=== PATIENT | male | born 1995 | race Caucasian/White ===

== ENCOUNTER 2020-12-23 05:26 | Emergency (ER) | payer BC ==
[2020-12-23] MEDS ORDERED: Ondansetron 4 MG/2 ML SDV IVPUSH ONE (05:55)
[2020-12-23] MEDS ORDERED: HYDROmorphone 0.5 MG/0.5 ML Syringe IVPUSH ONE (05:55)
[2020-12-23] MEDS ORDERED: Sodium Chloride 0.9% 1,000 ML IV SCH (06:00)
--- NOTE | 2020-12-23 06:00 | EDM.PDOC ---
ED HPI GENERAL MEDICAL PROBLEM - General Chief Complaint: Genitourinary Problem Stated Complaint: POSS KIDNEY STONES Time Seen by Provider: 12/23/20 05:39 Source of Information: Reports: Patient History Limitations: Reports: No Limitations - History of Present Illness INITIAL COMMENTS - FREE TEXT/NARRATIVE: Mr. Oconnor is a very pleasant 25-year-old gentleman who now presents the ED stating that he developed right sided abdominal pain and nausea around 01 30 this morning. No urinary symptoms, and no back or flank pain. No recent fever. He states that his current symptoms are similar to when he had a kidney stone in 2015; he did not have back or flank pain at that time, either. The patient did not take any [id number] or home remedies since the onset of his symptoms. Here in the ED, the patient's initial BP was mildly elevated at 143/85, otherwise, he is hemodynamically stable, afebrile, saturating 98% on room air. He appears to be comfortable, in no acute distress. Prior to this morning, the patient denies having a recent fever, chills, sore throat, ear pain, nasal or sinus congestion, cough, dyspnea, chest pain, palpitations, nausea, vomiting, constipation, diarrhea, abdominal pain, urinary symptoms, recent weight gain or weight loss, recent bloody bowel movements or black bowel movements, recent joint aches, headaches, or rashes. I reviewed the PMHx/PSHx/SocHx, which was reviewed with the patient by the RN. The patient does not have a PCP. He has not received a COVID vaccination, nor an influenza vaccination this season. Right Abdomen Pain Score (Numeric/FACES): 9 - Related Data Allergies Allergy/AdvReac Type Severity Reaction Status Date / Time Penicillins Allergy Other Verified 12/23/20 05:45 Past Medical History Genitourinary History: Reports: Renal Calculus Social & Family History - Tobacco Use Tobacco Use Status *Q: Never Tobacco User - Recreational Drug Use Recreational Drug Use: No ED ROS GENERAL - Review of Systems Review Of Systems: Comprehensive ROS is negative, except as noted in HPI. ED EXAM, GENERAL - Physical Exam Exam: See Below Exam Limited By: No Limitations General Appearance: Alert, WD/WN, No Apparent Distress Eye Exam: Bilateral Eye: EOMI, Normal Inspection Ears: Normal External Exam, Hearing Grossly Normal Nose: Normal Inspection Throat/Mouth: Normal Inspection, Normal Lips, Normal Voice, No Airway Compromise Head: Atraumatic, Normocephalic Neck: Normal Inspection, Full Range of Motion Respiratory/Chest: No Respiratory Distress, Lungs Clear, Normal Breath Sounds, No Accessory Muscle Use Cardiovascular: Normal Peripheral Pulses, Regular Rate, Rhythm, No Edema, No Gallop, No JVD, No Murmur, No Rub Peripheral Pulses: 3+: Radial (L), Radial (R) GI/Abdominal: Normal Bowel Sounds, Soft, No Organomegaly, No Distention, No Abnormal Bruit, No Mass, Tender (To the right side of the abdomen only. Nontender on the left side.) Back Exam: Normal Inspection, Full Range of Motion. No: CVA Tenderness (L), CVA Tenderness (R) Extremities: Normal Inspection, Normal Range of Motion, No Pedal Edema, Normal Capillary Refill Neurological: Alert, Oriented, Normal Cognition, No Motor/Sensory Deficits Psychiatric: Normal Affect Skin Exam: Warm, Dry, Intact, Normal Color, No Rash Course - Vital Signs Last Recorded V/S: Last Vital Signs Temp 36.6 C 12/23/20 05:39 Pulse 75 12/23/20 05:39 Resp 20 12/23/20 05:39 BP 143/85 H 12/23/20 05:39 Pulse Ox 98 12/23/20 05:39 - Orders/Labs/Meds Orders: Active Orders 24 hr Category Date Time Status Sodium Chloride 0.9% [Normal Saline] 1,000 ml Med 12/23/20 06:00 Active IV ASDIRECTED Sodium Chloride 0.9% [Saline Flush] Med 12/23/20 07:10 Active 10 ml FLUSH ONETIME PRN Medication Orders Sodium Chloride (Normal Saline) 1,000 mls @ 150 mls/hr IV ASDIRECTED TORI Last Admin: 12/23/20 06:38 Dose: 150 mls/hr Documented by: ROSE Sodium Chloride (Sodium Chloride 0.9% 10 Ml Syringe) 10 ml FLUSH ONETIME PRN PRN Reason: Keep Vein Open Labs: Laboratory Tests 12/23/20 12/23/20 12/23/20 Range/Units 06:05 06:05 06:15 WBC 13.88 H (4.23-9.07) K/mm3 RBC 4.86 (4.63-6.08) M/mm3 Hgb 15.1 (13.7-17.5) gm/dl Hct 42.2 (40.1-51.0) % MCV 86.8 (79.0-92.2) fl MCH 31.1 (25.7-32.2) pg MCHC 35.8 H (32.2-35.5) g/dl RDW Std Deviation 39.4 (35.1-43.9) fL Plt Count 220 (163-337) K/mm3 MPV 9.1 L (9.4-12.3) fl Neutrophils % (Manual) 91 H (40-60) % Band Neutrophils % 1 (0-10) % Lymphocytes % (Manual) 5 L (20-40) % Atypical Lymphs % 0 % Monocytes % (Manual) 3 (2-10) % Eosinophils % (Manual) 0 L (0.8-7.0) % Basophils % (Manual) 0 L (0.2-1.2) Platelet Estimate Adequate RBC Morph Comment Normal Sodium 141 (136-145) mEq/L Potassium 3.7 (3.5-5.1) mEq/L Chloride 105 (98-107) mEq/L Carbon Dioxide 25 (21-32) mEq/L Anion Gap 14.7 (5-15) BUN 16 (7-18) mg/dL Creatinine 0.9 (0.7-1.3) mg/dL Est Cr Clr Drug Dosing 120.33 mL/min Estimated GFR (MDRD) > 60 (>60) mL/min BUN/Creatinine Ratio 17.8 (14-18) Glucose 138 H (70-99) mg/dL Calcium 9.0 (8.5-10.1) mg/dL Total Bilirubin 1.7 H (0.2-1.0) mg/dL AST 19 (15-37) U/L ALT 31 (16-63) U/L Alkaline Phosphatase 74 (46-116) U/L Total Protein 6.5 (6.4-8.2) g/dl Albumin 4.1 (3.4-5.0) g/dl Globulin 2.4 gm/dL Albumin/Globulin Ratio 1.7 (1-2) Lipase 74 (73-393) U/L Urine Color Yellow (Yellow) Urine Appearance Clear (Clear) Urine pH 6.0 (5.0-8.0) Ur Specific [place] > or = 1.030 (1.005-1.030) Urine Protein Negative (Negative) Urine Glucose (UA) Negative (Negative) Urine Ketones Negative (Negative) Urine Occult Blood Negative (Negative) Urine Nitrite Negative (Negative) Urine Bilirubin Negative (Negative) Urine Urobilinogen 0.2 (0.2-1.0) Ur Leukocyte Esterase Negative (Negative) Urine RBC Not seen (0-5) /hpf Urine WBC Not seen (0-5) /hpf Ur Squamous Epith Cells 0-5 (0-5) /hpf Urine Bacteria Few (FEW) /hpf Urine Mucus Many H (FEW) /hpf Meds: Medications Generic Name Dose Route Start Last Admin Trade Name Freq PRN Reason Stop Dose Admin Sodium Chloride 1,000 mls @ 150 mls/hr 12/23/20 06:00 12/23/20 06:38 Normal Saline IV 150 mls/hr ASDIRECTED TORI Administration Sodium Chloride 10 ml 12/23/20 07:10 Sodium Chloride 0.9% 10 Ml Syringe FLUSH ONETIME PRN Keep Vein Open Discontinued Medications Generic Name Dose Route Start Last Admin Trade Name Freq PRN Reason Stop Dose Admin Diatrizoate Meglum/Diatrizoate Sod 60 ml 12/23/20 07:09 Diatrizoate Meglumine/Diatrizoate Sodium 37% 120 Ml Bottle PO 12/23/20 07:10 ONETIME ONE Hydromorphone HCl 0.5 mg 12/23/20 05:55 12/23/20 06:36 Hydromorphone 0.5 Mg/0.5 Ml Syringe IVPUSH 12/23/20 05:56 0.5 mg ONETIME ONE Administration Iopamidol 100 ml 12/23/20 07:09 Iopamidol 612 Mg/Ml 100 Ml Bottle IVPUSH 12/23/20 07:10 ONETIME ONE Iopamidol 25 ml 12/23/20 07:10 Iopamidol 612 Mg/Ml 50 Ml Sdv IVPUSH 12/23/20 07:11 ONETIME ONE Ondansetron HCl 4 mg 12/23/20 05:55 12/23/20 06:36 Ondansetron 4 Mg/2 Ml Sdv IVPUSH 12/23/20 05:56 4 mg ONETIME ONE Administration - Re-Assessments/Exams Free Text/Narrative Re-Assessment/Exam: 12/23/20 05:56 The patient is complaining of right-sided abdominal pain, and he has tenderness to the right side of his abdomen, as well. No significant tenderness to the left side of his abdomen, and no CVA tenderness on either side. I have ordered a work-up that includes several blood tests, a urinalysis by clean-catch, and a CT of the abdomen and pelvis with oral and IV contrast. In the meantime, the patient will be treated with IV Dilaudid, IV Zofran, and IV fluid. 12/23/20 07:33 The patient's CBC is remarkable for leukocytosis of 13.88, but with only 1% bandemia, and the remainder of his CBC being unremarkable. His CMP is remarkable for modest hyperglycemia of 138, and a TBil elevated at 1.7, with remainder of his CBC being unremarkable. His lipase level is within normal limits at 74. His urinalysis is unremarkable. Results of his CT of the abdomen and pelvis are still pending. 12/23/20 08:17 CT of the abdomen and pelvis with oral and IV contrast is read by Dr. Bonner as: 1. Mild increased stool throughout the colon. 2. Nonvisualized appendix. 3. 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 4. No acute abnormality is appreciated on CT study of the abdomen and pelvis. 12/23/20 08:30 Test results discussed with the patient. As above, today's work-up is grossly unremarkable. The only possible explanation for his pain is constipation. I advised him to maybe drink some prune juice to see if he can clear himself out. Departure - Departure Time of Disposition: 08:30 Disposition: Home, Self-Care 01 Condition: Good Clinical Impression: Abdominal pain of unknown etiology - Discharge Information *PRESCRIPTION DRUG MONITORING PROGRAM REVIEWED*: Not Applicable *COPY OF PRESCRIPTION DRUG MONITORING REPORT IN PATIENT VEDA: Not Applicable Referrals: PCP,None [Primary Care Provider] - Forms: ED Department Discharge Additional Instructions: You were seen in the emergency room after developing right-sided abdominal pain and nausea earlier this morning. Work-up in the ER included several blood tests, urinalysis, and a CT of your abdomen and pelvis with oral and IV contrast. The CT scan found an excessive amount of stool, otherwise, your entire work-up was unremarkable. You do not have a kidney stone. You do not have appendicitis. We recommend that you try to clear yourself out with some prune juice or similar. If any other problems, please do not hesitate to return to the ER. Sepsis Event Note (ED) - Focused Exam Vital Signs: Vital Signs Temp Pulse Resp BP Pulse Ox 12/23/20 05:39 36.6 C 75 20 143/85 H 98 - My Orders Last 24 Hours: My Active Orders 12/23/20 06:00 Sodium Chloride 0.9% [Normal Saline] 1,000 ml IV ASDIRECTED 12/23/20 07:10 Sodium Chloride 0.9% [Saline Flush] 10 ml FLUSH ONETIME PRN - Assessment/Plan Last 24 Hours: My Active Orders 12/23/20 06:00 Sodium Chloride 0.9% [Normal Saline] 1,000 ml IV ASDIRECTED 12/23/20 07:10 Sodium Chloride 0.9% [Saline Flush] 10 ml FLUSH ONETIME PRN
[2020-12-23] MEDS ORDERED: Iopamidol 612 MG/ML 100 ML Bottle IVPUSH ONE (07:09)
[2020-12-23] MEDS ORDERED: Diatrizoate Meglumine/Diatrizoate Sodium 37% 120 ML Bottle PO ONE (07:09)
[2020-12-23] MEDS ORDERED: Sodium Chloride 0.9% 10 ML Syringe FLUSH PRN (07:10)
[2020-12-23] MEDS ORDERED: Iopamidol 612 MG/ML 50 ML SDV IVPUSH ONE (07:10)
--- NOTE | 2020-12-23 08:06 | CT ---
CT abdomen and pelvis Technique: Multiple axial sections were obtained from above the dome of the diaphragm inferiorly through the pubic symphysis. Intravenous and oral contrast were utilized. Delayed images were obtained through the bladder. Reconstructed coronal and sagittal images were obtained. Comparison: No prior abdominal imaging is available. Findings: Visualized lung bases show nothing acute. Liver shows no focal parenchymal abnormality. Gallbladder contains no calcified gallstones. Spleen size is normal. Adrenal glands show no nodule. Pancreas appears within normal limits. Kidneys show symmetric contrast enhancement. No hydronephrosis or mass is seen. Delayed images show contrast within the distal ureters and within the bladder. Abdominal aorta shows no aneurysm. Celiac axis and superior mesenteric arteries as well as renal arteries appear patent. Inferior mesenteric artery is patent. No retroperitoneal adenopathy is seen. No mesenteric abnormalities are seen. No pelvic mass or adenopathy is seen. Appendix is not visualized with certainty. There is mild increased stool seen throughout the colon. Bone window settings were reviewed which show bilateral spondylolytic defects at L5-S1. No spondylolisthesis is seen. Impression: 1. Mild increased stool throughout the colon. 2. Nonvisualized appendix. 3. 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 4. No acute abnormality is appreciated on CT study of the abdomen and pelvis. Diagnostic code #2
== END 2020-12-23 08:50 | disposition home or self-care (01) ==
LOC: JD.ED 05:26
DX: R10.9 Unspecified abdominal pain (principal); Z88.0 Allergy status to penicillin
CPT/HCPCS: 36415; 74177; 80053; 81001; 83690; 85007; 85027; 96374; 96375; 99284; J1170; J2405; J7030; Q9963